=== PATIENT | male | born 2000 | race Caucasian/White ===

== ENCOUNTER 2022-06-28 23:35 | Emergency (ER) | payer OTHER ==
[~2022-06-28] VITALS: Ht 175.3 cm; Wt 72.7 kg
[2022-06-28 23:44] VITALS: TEMP 98.8
[2022-06-29 00:25] LABS: STREP SCREEN NEGATIVE
[2022-06-29 00:34] LABS: MONOSCREEN NEGATIVE
[2022-06-29 01:05] VITALS: BP 117/86; PULSE 96
== END 2022-06-29 01:06 | disposition home or self-care (01) ==
LOC: COL.ER 23:35
PROVIDERS: Nurse Practitioner Primary Care
DX: J06.9 Acute upper respiratory infection, unspecified (principal); F17.290 Nicotine dependence, other tobacco product, uncomplicated; Z20.822 Contact with and (suspected) exposure to COVID-19; Z28.310 Unvaccinated for COVID-19